=== PATIENT | female | born 1985 | race Caucasian/White ===

== ENCOUNTER 2018-11-21 08:03 | Day surgery (SDC) | payer MEDICAID ==
[2018-11-21] MEDS ORDERED: Dextrose 5%-Lactated Ringers 1,000 ML IV SCH (08:30)
[2018-11-21] MEDS ORDERED: Glycopyrrolate 0.2 MG/ML 2 ML SDV IVPUSH ONE (09:30)
[2018-11-21] MEDS ORDERED: Propofol 200 MG/20 ML SDV ONE ×2 (09:52→10:54)
[2018-11-21] MEDS ORDERED: Midazolam 1 MG/ML 2 ML SDV ONE ×2 (09:52→10:54)
[2018-11-21] MEDS ORDERED: fentaNYL 100 MCG/2 ML SDV ONE ×2 (09:52→10:54)
--- NOTE | 2018-11-27 10:40 | OR ---
DATE OF PROCEDURE: 11/21/2018 PREOPERATIVE DIAGNOSIS: Severe gastroesophageal reflux, status post laparoscopic adjustable gastric band. POSTOPERATIVE DIAGNOSES: 1. Marked esophageal dilation and esophagitis, status post laparoscopic adjustable gastric band. 2. Mild antral gastritis. PROCEDURE: Upper GI endoscopy with biopsies of antrum for CLOtest. ANESTHESIA: IV sedation. INDICATION FOR PROCEDURE: This is a 32-year-old female status post laparoscopic adjustable gastric band placement in [place], [place] in 2012. Over the past few months, she has had increasing problems with marked esophageal reflux symptoms with the patient experiencing some bilious-type material getting up into the throat particularly when sleeping and occasionally waking up coughing indicating some degree of aspiration of the esophageal contents. This has been continuing despite the band having been deflated. The plan is to proceed with upper GI endoscopy for diagnostic purposes. Potential risks of the procedure including bleeding and perforation were discussed, and the patient wishes to proceed. DETAILS OF PROCEDURE: The patient was taken to the operating room and placed in a left lateral decubitus position. IV sedation was administered, after which the upper GI endoscope was passed orally through the length of the esophagus into the stomach with retroflexion view of the fundus, and thereafter, through the pyloric channel and the proximal duodenum. Findings included some redness in the hypopharynx and larynx, consistent with some reflux. As one entered the esophagus, there was some pooled fluid within it. This had some mild bowel staining and it was associated with quite striking esophageal dilation and excoriation of the distal esophagus. The point where the band imprint had come across the gastric cardia was unremarkable in terms of there being no mechanical obstruction at this area, and retroflexion view to view the fundus from within the stomach revealed the band implant with signs of erosion. Within the antrum of the stomach, there was some mild redness, but without erosions or ulcers. The visualized portion of the pyloric channel and duodenum were unremarkable. At this point, biopsies were obtained from the antrum to establish the patient's H. pylori status by means of a CLOtest. The scope was then withdrawn. All the fluid was aspirated from the esophagus to minimize post operative pulmonary complications, and the procedure was then concluded. The patient would appear to be a candidate for conversion of the band to a Angelique-en-Y gastric bypass status and in fact as a fairly urgent medical indications for this given the clinical and the endoscopic findings and a prior authorization for that conversion will be sent to her insurance carrier. Brandon Zarate MD /[id number]
--- NOTE | 2018-11-27 17:13 | OR ---
DATE OF PROCEDURE: 11/21/2018 PREOPERATIVE DIAGNOSIS: Severe gastroesophageal reflux, status post laparoscopic adjustable gastric band. POSTOPERATIVE DIAGNOSES: 1. Marked esophageal dilation and esophagitis, status post laparoscopic adjustable gastric band placement. 2. Mild antral gastritis. OPERATIVE PROCEDURE: Esophagogastroduodenoscopy with biopsies of antrum for CLOtest. ANESTHESIA: IV sedation. INDICATION FOR PROCEDURE: This is a 32-year-old status post laparoscopic adjustable gastric band placement in [place] in 2012. Initially, she did reasonably well going from a constant weight of 274 pounds down to 230 pounds. Recently, she has had problems with severe reflux. This has persisted with the patient waking up at times with some bilious- type material in her throat and coughing. This has persisted despite band being deflated. Over the past period of months, she has increasingly needed to resort to more of a liquid diet as to minimize those symptoms, and with this, has had significant weight regain at presently of 286 pounds. The plan is to proceed with upper GI endoscopy for diagnostic purposes. Potential risks of the procedure including bleeding and perforation were discussed, and the patient wishes to proceed. DETAILS OF PROCEDURE: The patient was taken to the operating room and placed in a left lateral decubitus position. IV sedation was administered, after which the upper GI endoscope was passed orally through the length of the esophagus, into the stomach including through the imprint of the band, which was located at the gastric cardia, and from there, retroflexion within the stomach to review the fundus, beyond that and through the pyloric channel and into the proximal duodenum. Findings included a markedly-dilated esophagus. This contained some faint bilious fluid present. This was initially evacuated and measured around 25 mL in the canister. This was mixed with some scattered solid stool with food as well. There was marked redness diffusely of the distal third of the esophagus related to the pooling of the fluid and associated dilation. At the gastric cardia, the imprint of the band was present. This was wide open, i.e., there was no mechanical obstruction from the band itself indicating that we are dealing with more of functional esophageal dilation, which one often sees above the band. Within the stomach, retroflexion revealed no evidence of band erosion, and there was some patchy redness in the antrum consistent with some antral gastritis. Pyloric channel and proximal duodenum were unremarkable. At this point, biopsies were obtained from the antrum and sent for CLOtest for H. pylori. Minimal bleeding from the biopsy sites was seen and the procedure then concluded. The patient would appear to be in a relatively urgent need to have the band removed and it would be best treated by conversion to a Angelique-en-Y gastric bypass. We will contact her insurance carrier regarding that issue. Brandon Zarate MD /[id number]
== END 2018-11-21 12:20 | disposition home or self-care (01) ==
LOC: JP.SDS 08:03
PROVIDERS: ATTEND Surgery
DX: K21.9 Gastro-esophageal reflux disease without esophagitis (principal); K22.8 Other specified diseases of esophagus; K95.89 Other complications of other bariatric procedure; K29.70 Gastritis, unspecified, without bleeding; I10 Essential (primary) hypertension; E66.09 Other obesity due to excess calories; Z87.891 Personal history of nicotine dependence; Z98.84 Bariatric surgery status
CPT/HCPCS: 43239; 81025; 87081; J2250; J2704; J3010; J3490; J7042

== ENCOUNTER 2019-03-24 07:15 | Inpatient (IN) | payer MEDICAID ==
[~2019-03-24 07:15] MED LIST: Bupivacaine 0.5% 50 ML MDV ONE
[2019-03-24] MEDS ORDERED: cefOXitin 2 GM Vial ONE (07:17)
[2019-03-24] MEDS ORDERED: Scopolamine 1.5 MG Transdermal Patch TOP SCH (07:45)
[2019-03-24] MEDS ORDERED: Celecoxib 200 MG Cap PO ONE (07:45)
[2019-03-24] MEDS ORDERED: Acetaminophen 500 MG Tab PO ONE (07:45)
[2019-03-24] MEDS ORDERED: Gabapentin 300 MG Cap PO ONE (07:45)
[2019-03-24] MEDS ORDERED: fentaNYL 250 MCG/5 ML SDV ONE ×3 (08:16→11:42)
[2019-03-24] MEDS ORDERED: Neostigmine Methylsulfate 1 MG/ML 5 ML Syringe ONE (08:17)
[2019-03-24] MEDS ORDERED: Propofol 200 MG/20 ML SDV ONE (08:17)
[2019-03-24] MEDS ORDERED: Ondansetron 4 MG/2 ML SDV ONE (08:17)
[2019-03-24] MEDS ORDERED: Glycopyrrolate 0.2 MG/ML 5 ML MDV ONE (08:17)
[2019-03-24] MEDS ORDERED: Dexamethasone 4 MG/ML SDV ONE (08:17)
[2019-03-24] MEDS ORDERED: Succinylcholine 200 MG/10 ML MDV ONE (08:17)
[2019-03-24] MEDS ORDERED: Rocuronium 50 MG/5 ML Vial ONE (08:17)
[2019-03-24] MEDS ORDERED: Lactated Ringers 1,000 ML ONE (08:18)
[2019-03-24] MEDS ORDERED: Dextrose 5%-Lactated Ringers 1,000 ML IV SCH (08:30)
[2019-03-24] MEDS ORDERED: cefOXitin 2 GM in Sodium Chloride 0.9% 50 ML IV ONE (09:30)
[2019-03-24] MEDS ORDERED: Ketamine 500 MG/5 ML MDV IV SCH (09:45)
[2019-03-24] MEDS ORDERED: Lidocaine 2% 100 MG/5 ML Syringe IVPUSH SCH (09:45)
[2019-03-24] MEDS ORDERED: Ketamine 50 MG in Sodium Chloride 0.9% 49.5 ML IV SCH (09:45)
[2019-03-24] MEDS ORDERED: Labetalol 20 MG/4 ML Syringe ONE (11:28)
[2019-03-24] MEDS ORDERED: hydrOXYzine HCl 100 MG/2 ML SDV IM ONE (13:51)
[2019-03-24] MEDS ORDERED: Labetalol 20 MG/4 ML Syringe IVPUSH PRN (14:27)
[2019-03-24] MEDS ORDERED: HYDROmorphone 1 MG/ML Syringe IV PRN (14:27)
[2019-03-24] MEDS ORDERED: hydrOXYzine HCl 100 MG/2 ML SDV IM PRN (14:27)
[2019-03-24] MEDS ORDERED: Metoclopramide 10 MG/2 ML SDV IVPUSH PRN (14:27)
[2019-03-24] MEDS ORDERED: diphenhydrAMINE 50 MG/ML SDV IVPUSH PRN (14:27)
[2019-03-24] MEDS: Lidocaine 0.4%/D5W 2 GM/500 ML BAG IV SCH (14:35)
[2019-03-24] MEDS: Gabapentin 250 MG/5 ML Solution ML 470 ML Bottle PO SCH ×2 (15:00→21:12)
[2019-03-24] MEDS: HYDROmorphone 0.5 MG/0.5 ML Syringe IVPUSH PRN (15:00)
[2019-03-24] MEDS: Acetaminophen Soln 650 MG/20.3 ML UD Cup PO SCH ×2 (15:03→21:12)
[2019-03-24] MEDS ORDERED: MVI, Adult with Vitamin K 10 ML, Thiamine 200 MG, Chromium/Copper/Mang/Selen/Zn 1 ML in... IV SCH ×4 (16:00)
[2019-03-24] MEDS ORDERED: Pantoprazole 40 MG Vial IVPUSH SCH (16:00)
[2019-03-24] MEDS: cefOXitin 2 GM in Sodium Chloride 0.9% 50 ML IV SCH ×2 (16:33→21:12)
[2019-03-24] MEDS: Ondansetron 4 MG/2 ML SDV IVPUSH PRN (17:32)
[2019-03-24] MEDS: Heparin Sodium 5,000 Units/ML Vial SUBCUT SCH (18:11)
[2019-03-24] MEDS: Dextrose 5%-Lactated Ringers 1,000 ML IV SCH (22:30)
[2019-03-25] MEDS: cefOXitin 2 GM in Sodium Chloride 0.9% 50 ML IV SCH ×4 (03:29→21:09)
[2019-03-25] MEDS: Acetaminophen Soln 650 MG/20.3 ML UD Cup PO SCH ×4 (03:30→21:09)
[2019-03-25] MEDS: Dextrose 5%-Lactated Ringers 1,000 ML IV SCH ×2 (03:30→09:14)
[2019-03-25] MEDS ORDERED: Iohexol 647 MG/ML 50 ML SDV PO STA (03:30)
[2019-03-25] MEDS: Ondansetron 4 MG/2 ML SDV IVPUSH PRN (04:05)
[2019-03-25] MEDS: HYDROmorphone 0.5 MG/0.5 ML Syringe IVPUSH PRN (04:05)
--- NOTE | 2019-03-25 04:07 | CRLCR ---
INDICATION: History gastric bypass. TECHNIQUE: Two-view. FINDINGS: Two images demonstrate postsurgical changes of gastric bypass. There is contrast in the lower esophagus, gastric pouch and jejunum. No extravasation is seen. Surgical drain in the left upper quadrant is noted. Postsurgical changes from cholecystectomy are noted. IMPRESSION: Postsurgical changes of gastric bypass. No extravasation is seen based on 2 views. Dictated by Tim Irene MD @ Mar 26 2019 8:56AM Signed by Dr. Tim Irene @ Mar 26 2019 9:04AM
[2019-03-25] MEDS: Heparin Sodium 5,000 Units/ML Vial SUBCUT SCH ×2 (05:44→18:59)
[2019-03-25] MEDS ORDERED: Ondansetron 4 MG Tab.DIS PO PRN (07:29)
[2019-03-25] MEDS: Celecoxib 200 MG Cap PO SCH (08:31)
[2019-03-25] MEDS: Gabapentin 250 MG/5 ML Solution ML 470 ML Bottle PO SCH ×3 (08:31→21:09)
[2019-03-25] MEDS ORDERED: LEVONORGESTREL IY SCH (09:00)
[2019-03-25] MEDS ORDERED: Tamsulosin 0.4 MG Cap.ER PO ONE (09:00)
[2019-03-25] MEDS: SCOPOLAMINE PATCH CHECK TOP SCH (09:14)
--- NOTE | 2019-03-25 12:47 | PN ---
DATE OF SERVICE: 03/25/2019 SUBJECTIVE: Heather is postoperative day #1, her upper GI was normal this morning. She has received 2 doses. Her pain has been controlled. She has been up ambulating. REVIEW OF SYSTEMS: Remainder of review of systems negative for any pertinent positives and negatives. OBJECTIVE: GENERAL: Heather Swanson is a 33-year-old female. She is alert and orientated, sitting up in the chair. VITAL SIGNS: TPR 99, 90, 18, blood pressure 131/70. HEENT: Negative. NECK: Supple. HEART: Regular rate and rhythm. LUNGS: Clear. ABDOMEN: Dressings dry and intact. Abdominal binder is on. JOSE ALEJANDRO drain put out 135 mL of a light pink serosanguineous drainage. EXTREMITIES: Without peripheral edema. ASSESSMENT: Removal of laparoscopic gastric band system and conversion to Angelique-en-Y gastric bypass surgery; date of surgery is 03/24/2019; surgeon, Brandon Zarate MD. PLAN: 1. Decrease IV to 100 mL per hour. 2. Step-2 gastric bypass diet with no cereal. 3. Communication order, 3 med cups per hour, record at bedside. 4. Dressing off, may shower. 5. Ambulate 6 times. 6. Zofran 4 mg ODT one q.4 hours p.r.n. nausea. Home medication restarted that is daily. 7. Good pulmonary toilet. 8. We will evaluate p.r.n. or in a.m. Robina Lee PA-C /[id number]
[2019-03-25] MEDS ORDERED: Pantoprazole 40 MG Delayed-Release Granules 1 Packet PO SCH (16:00)
[2019-03-25] MEDS ORDERED: MVI, Adult with Vitamin K 10 ML, Thiamine 200 MG, Chromium/Copper/Mang/Selen/Zn 1 ML in... IV SCH ×4 (16:00)
[2019-03-25] MEDS: Lidocaine 0.4%/D5W 2 GM/500 ML BAG IV SCH (16:05)
[2019-03-26] MEDS: Dextrose 5%-Lactated Ringers 1,000 ML IV SCH (03:21)
[2019-03-26] MEDS: Acetaminophen Soln 650 MG/20.3 ML UD Cup PO SCH ×2 (03:22→09:41)
[2019-03-26] MEDS: Heparin Sodium 5,000 Units/ML Vial SUBCUT SCH (06:07)
[2019-03-26] MEDS ORDERED: Cyanocobalamin (Vitamin B12) 1,000 MCG/ML SDV IM ONE (09:00)
[2019-03-26] MEDS: Celecoxib 200 MG Cap PO SCH (09:41)
[2019-03-26] MEDS: Gabapentin 250 MG/5 ML Solution ML 470 ML Bottle PO SCH (09:42)
[2019-03-26] MEDS: SCOPOLAMINE PATCH CHECK TOP SCH (09:42)
--- NOTE | 2019-03-26 15:26 | OR ---
DATE OF PROCEDURE: 03/24/2019 PREOPERATIVE DIAGNOSES: Intolerance to and recurrent morbid obesity associated with laparoscopic adjustable gastric band. POSTOPERATIVE DIAGNOSES: 1. Intolerance to and recurrent morbid obesity associated with laparoscopic adjustable gastric band. 2. Area of deserosalization of stomach secondary to takedown of gastric band. 3. Paraesophageal diaphragmatic hernia. 4. Marked hepatomegaly. OPERATIVE PROCEDURES: Diagnostic laparoscopy with: 1. Removal of laparoscopic adjustable gastric band system (35517). 2. Formation of Angelique-en-Y gastric bypass (35956). 3. Partial gastrectomy (01873). 4. Kenroy-Cut needle liver biopsy (99171). ANESTHESIA: General. OB SCRUB TECH: Robina Lee PA-C. INDICATIONS FOR PROCEDURE: This is a 33-year-old female presenting with history of laparoscopic adjustable gastric band placement. Over the past several months to a year or so, she has had increasing problems with marked heartburn and upper endoscopy revealed significant esophageal dilation and marked esophagitis. With this, she has also had a significant weight regain and is clinically well into the range of morbid obesity with a current BMI of 45. After preoperative evaluation and discussion, the plan is to proceed with removal of gastric band system, along with conversion to Angelique-en-Y gastric bypass. Potential risks of the procedure including bleeding, infection, leaks from various GI tract closures, problems with bowel obstruction over time, as well as the possibility of cardiopulmonary, septic, or hemorrhagic complications leading to were discussed, and the patient wishes to proceed. DETAILS OF PROCEDURE: The patient was taken to the operating room and after general endotracheal anesthesia was induced, she was converted to a lithotomy position. The abdomen was prepped and draped. At 15 cm inferior and 5 cm left of the xiphoid process, a transverse incision was made, and the peritoneal cavity was entered under direct vision with an Optiview trocar, inflated to 15 mmHg pressure with CO2. Laparoscope was then reinserted, and no underlying trocar insertion site injuries were seen. Following this, bilateral subcostal transversus abdominis plane blocks were placed, and 5 additional trocars were placed across the upper and mid-abdomen. Initial examination of the liver showed marked hepatomegaly with liver volume being roughly 2 to 3 times normal and grossly fatty infiltrated. Kenroy-Cut needle biopsies were obtained from left lobe of liver. Minimal bleeding from the biopsy site was controlled with electrocautery. Attention was taken to removal of the band. The liver was retracted anteriorly. Some adhesions between the band area and the liver were divided with Harmonic scalpel, allowing anterior retraction of the liver. The gastric wrap over the band was then taken down with electrocautery. Once the attachments of fibrous tissue to the band were freed up, the band was divided and pulled from the band track. The port tubing was then cut at 2 levels and a segment of port tubing alone was removed along with the port tubing and the attached band. During the course of the dissection, there was a rim of gastric wall, which was devascularized and deserosalized. This was resected with a CASSANDRA black load. The patient was noted, upon removal of the band, to have a paraesophageal diaphragmatic hernia with prolapse of some omentum and perigastric fat in a plane posterior to the course of the stomach above where the band imprint had been. This was dissected free and then freed up enough that a posterior repair was accomplished with 0 Ethibond sutures reinforced with PTFE pledgets. The gastric pouch was then constructed with division of the stomach at the level of the band imprint with 3 firings of the CASSANDRA black loads. Upon completion of the staple lines, both sites of the elayne appeared to be intact. At this point, attention was taken to the small bowel. The small bowel was identified at the ligament of Treitz and dissected down 200 cm distal to that point, where it was divided with the CASSANDRA stapler. Small bowel was then traced out additional 200 cm, where the side-to- side enteroenterostomy was accomplished with internal firing of the Endo-CASSANDRA 60-mm stapler. Common opening was then closed transversely with the same stapler, and the angles anastomosed and mesenteric defect approximated with some 0 Ethibond stitch, along with 4 mL of fibrin sealant. The divided end of the Angelique limb was then from the mesentery for a few centimeters, which allowed an antecolic position of the Angelique limb up to the level of the gastroesophageal junction without tension. The anvil of a 25-mm EEA stapler was attached to Clare sump tube. The latter was brought down through the mouth and taken out a small opening in the gastric pouch, and the anvil likewise to be pulled down within the gastric pouch. The divided end of the Angelique limb was then opened and main body of the EEA stapler was passed several centimeters into the Angelique limb, brought up to the anvil and united with it, thus creating the gastrojejunostomy. Upon removal of the stapler, double donuts of mucosa were noted within it. Then, the small bowel was closed off with vascular staple line. The gastrojejunostomy was then reinforced with some fibrin sealant and 3-0 Vicryl stitch placed on the left anterior and right aspects of the gastrojejunostomy in the seromuscular plane. Additionally, a tongue of omentum was then brought in behind the gastrojejunostomy and this being pulled from the left to the right side and sutured to the fatty soft tissues to the right of the gastrojejunostomy to hold it in place with 3-0 Vicryl stitch as well. At that point, a leak test was accomplished with injection of 120 mL of air in the gastric pouch while it was submerged within cefoxitin- containing saline solution. A single Werner-Brandt drain was then taken out through the left lateral trocar site, placed very adjacent to gastrojejunostomy and from there up into the splenic fossa. At that point, no further problems were noted. Trocars were removed, and the peritoneal cavity deflated. Incisions were closed with 4-0 Vicryl skin stitch, which was also used to affix the drain. The patient was taken to the recovery room in a satisfactory condition. Physician assistant professor of history, Robina Lee, played an essential role in assisting in this case, helping to position the patient, retract structures as needed, as well as suturing and cutting sutures when indicated. Her presence improved patient safety and decreased the operative time. Brandon Zarate MD /[id number]
--- NOTE | 2019-03-28 07:56 | DISCH ---
ADMISSION DIAGNOSES: 1. Morbid obesity. 2. BMI of 45.5. 3. History of laparoscopic gastric band. DISCHARGE DIAGNOSES: 1. Diagnostic laparoscopy with: a. Removal of laparoscopic adjustable gastric band system. b. Formation of Angelique-en-Y gastric bypass. c. Partial gastrectomy. d. Kenroy-Cut needle liver biopsy for intolerance and recurrent morbid obesity associated with laparoscopic adjustable gastric band. 2. Area of deserosalization of the stomach secondary to takedown the gastric band. 3. Paraesophageal diaphragmatic hernia. 4. Marked hepatomegaly. HISTORY: Heather is a 33-year-old female presenting with history of laparoscopic adjustable gastric band placement. Over the past several months to a year, she has had increasing problems with her lap band, including heartburn. An upper endoscopy revealed significant esophageal dilatation and marked esophagitis. She had significant weight gain and increasing comorbidities. After preoperative evaluation and discussion of possible risks and possible complications, she wished to proceed with surgical procedure. HOSPITAL COURSE: Heather had her surgery on 03/24/2019. She had no operative complications. On postoperative day #1, she was started on a step-2 with no cereal gastric bypass diet. Her activity was good. Her pain was well managed. Vital signs remained stable. On postoperative day 2, she received dietary instruction and postop instruction reviewed, and she was able to be discharged to home. PHYSICAL EXAMINATION: GENERAL: Heather Swanson is a 33-year-old female. VITAL SIGNS: TPR is 98.5, 81, 16, blood pressure 128/67. HEENT: Negative. NECK: Supple. HEART: Regular rate and rhythm. LUNGS: Clear. ABDOMEN: Soft. Sutures intact. Incision is healing well, 4x4 over JOSE ALEJANDRO drain site. EXTREMITIES: Without peripheral edema. DISPOSITION: Discharged to home. CONDITION: Stable and improving. FOLLOWUP: Followup appointment with Robina Lee PA-C, on 04/02/2019 at 10 a.m. HOME MEDICATIONS: 1. Tylenol 650 mg oral q.6 hours. 2. Zofran ODT 4 mg every 4 hours p.r.n. nausea, #30. 3. Celebrex 200 mg oral daily, #14. 4. Kyleena (levonorgestrel) IUD. 5. Discontinue all vitamins and supplements until first postoperative appointment. DIET: Step-2 gastric bypass diet with no cereal until 04/08/2019. ACTIVITY: No lifting greater than 10 pounds for 2 weeks. Other activity, walk 6 times daily, distance and time as tolerated. Driving, do not drive for 1 week. Shower/ bathing, may shower. DISCHARGE INSTRUCTIONS: Notify provider if any fever, increased pain, nausea, or vomiting. Keep site clean and dry. Wear abdominal binder for 2 weeks and as tolerated. Special instruction, use incentive spirometer 10 times every hour while awake.
== END 2019-03-26 15:19 | disposition home or self-care (01) | DRG 327 ==
LOC: JP.SDSSCHI 07:15 → JP.MS 07:15 → UNDOADMIN 07:15 → JP.SDS 07:15 → EDSTATUS 08:30 → JP.MS 13:05
PROVIDERS: ADMIT Surgery; ATTEND Surgery
PROC: 0DP64CZ Removal of Extraluminal Device from Stomach, Percutaneous Endoscopic Approach (ICD-10-PCS; principal; 2019-03-24)
PROC: 0D164ZA Bypass Stomach to Jejunum, Percutaneous Endoscopic Approach (ICD-10-PCS; 2019-03-24)
PROC: 0BQT4ZZ Repair Diaphragm, Percutaneous Endoscopic Approach (ICD-10-PCS; 2019-03-24)
PROC: 0FB24ZX Excision of Left Lobe Liver, Percutaneous Endoscopic Approach, Diagnostic (ICD-10-PCS; 2019-03-24)
PROC: 0DB64ZZ Excision of Stomach, Percutaneous Endoscopic Approach (ICD-10-PCS; 2019-03-24)
DX: K95.09 Other complications of gastric band procedure (principal); Z68.42 Body mass index [BMI] 45.0-49.9, adult; E66.01 Morbid (severe) obesity due to excess calories; R16.0 Hepatomegaly, not elsewhere classified; K44.9 Diaphragmatic hernia without obstruction or gangrene; K76.0 Fatty (change of) liver, not elsewhere classified; Z98.84 Bariatric surgery status; Z87.898 Personal history of other specified conditions; Z88.5 Allergy status to narcotic agent; Z91.048 Other nonmedicinal substance allergy status; K31.89 Other diseases of stomach and duodenum; R12 Heartburn; K20.9 Esophagitis, unspecified; K22.8 Other specified diseases of esophagus
CPT/HCPCS: 36415; 74240; 81025; 82728; 82962; 86850; 86900; 86901; 88300; 88307; 88313; A9270-GY; C9113; J0171; J0330; J0694; J1100; J1170; J1644; J2001; J2405; J2704; J2710; J2795; J3010; J3410; J3411; J3420; J3490; J7042; J7050; J7120; Q9967

== ENCOUNTER 2020-02-24 05:33 | Day surgery (SDC) | payer MEDICAID ==
[2020-02-24] MEDS ORDERED: Cyanocobalamin (Vitamin B12) 1,000 MCG/ML SDV IM ONE (06:15)
[2020-02-24] MEDS ORDERED: Lactated Ringers 1,000 ML IV ONE (06:15)
[2020-02-24] MEDS ORDERED: Glycopyrrolate 0.2 MG/ML 2 ML SDV IVPUSH ONE (06:15)
[2020-02-24] MEDS ORDERED: MVI, Adult with Vitamin K 10 ML, Thiamine 200 MG, Chromium/Copper/Mang/Selen/Zn 1 ML in... IV ONE ×4 (07:00)
[2020-02-24] MEDS ORDERED: fentaNYL 100 MCG/2 ML SDV ONE (07:05)
[2020-02-24] MEDS ORDERED: Propofol 200 MG/20 ML SDV ONE (07:05)
[2020-02-24] MEDS ORDERED: Midazolam 1 MG/ML 2 ML SDV ONE (07:05)
[2020-02-24] MEDS ORDERED: Pantoprazole 40 MG Vial IVPUSH ONE (07:18)
--- NOTE | 2020-02-25 13:55 | OR ---
DATE OF PROCEDURE: 02/24/2020 SURGEON: Brandon Zarate MD PREOPERATIVE DIAGNOSIS: Dysphagia and painful swallowing, status post previous Angelique-en-Y gastric bypass. POSTOPERATIVE DIAGNOSIS: Moderate stricture at gastrojejunostomy. OPERATIVE PROCEDURE: Upper GI endoscopy with dilation of gastrojejunostomy (21054). ANESTHESIA: IV sedation. INDICATION FOR PROCEDURE: This is a 34-year-old female who is status post conversion of band to Angelique-en-Y gastric bypass status in March 2019. She presents now with some dysphagia and pain on swallowing gastrojejunostomy. She had been started on omeprazole a few days ago, but it was not tolerated due to nausea. Plan is to proceed with an upper GI endoscopy with biopsies and then dilation as indicated. Potential risks including bleeding and perforation were discussed, and the patient wishes to proceed. DESCRIPTION OF PROCEDURE: The patient was taken to the operating room and placed in the left lateral decubitus position. IV sedation was administered, after which the upper GI endoscope was passed orally through the length of the esophagus and into the gastrojejunostomy. The patient was noted to have mild stricture of that area. The scope was able to be passed through this, but fairly snugly. There was minimal inflammation present with a little bit of blood noted on the gastrojejunostomy after passage of the scope. Bard gastrointestinal catheter was centered across the anastomosis and inflated to 45-Greek size. This was held in position for 1 minute. After balloon catheter deflated and withdrawn, the patient was noted to have somewhat increased diameter of the gastrojejunostomy, but there were no complications. Procedure was then concluded. The plan will be to have the patient do the usual postop 2 diet for the next 5 days. We will advance as tolerated. We will give her Protonix 40 mg IV in the recovery room and then Protonix for 1 month of orally and should be following up with Robina Lee in April. Brandon Zarate MD /[id number]
== END 2020-02-24 10:04 | disposition home or self-care (01) ==
LOC: JP.SDS 05:33
PROVIDERS: ATTEND Surgery
DX: K91.89 Other postprocedural complications and disorders of digestive system (principal); K22.2 Esophageal obstruction; F17.200 Nicotine dependence, unspecified, uncomplicated; Z88.5 Allergy status to narcotic agent
CPT/HCPCS: 81025; C9113; J2250; J2704; J3010; J3411; J3420; J3490; J7120

== ENCOUNTER 2023-06-29 06:37 | Day surgery (SDC) | payer MEDICAID ==
[2023-06-29] MEDS: Cyanocobalamin (Vitamin B12) 1,000 MCG/ML SDV IM ONE ×2 (07:14→10:25)
[2023-06-29] MEDS ORDERED: Lactated Ringers 1,000 ML IV SCH (07:15)
[2023-06-29] MEDS ORDERED: fentaNYL 100 MCG/2 ML SDV ONE (07:18)
[2023-06-29] MEDS ORDERED: Midazolam 1 MG/ML 2 ML SDV ONE (07:18)
[2023-06-29] MEDS ORDERED: Propofol 200 MG/20 ML SDV ONE (07:18)
[2023-06-29] MEDS: MVI, Adult with Vitamin K 10 ML, Thiamine 200 MG, Zinc/Copper/Manganese/Selenium 1 ML i... IV ONE ×8 (07:27→10:24)
[2023-06-29] MEDS ORDERED: Glycopyrrolate 0.2 MG/ML 2 ML SDV IVPUSH ONE (07:45)
[2023-06-29] MEDS ORDERED: Dexamethasone 4 MG/ML SDV ONE (09:38)
== END 2023-06-29 10:46 | disposition home or self-care (01) ==
LOC: JP.SDS 06:37
PROVIDERS: ATTEND Surgery
DX: R12 Heartburn (principal); K21.9 Gastro-esophageal reflux disease without esophagitis; Z98.84 Bariatric surgery status; Z88.5 Allergy status to narcotic agent
CPT/HCPCS: 43235; C1726; J1100; J2250; J2704; J3010; J3411; J3420; J3490; J7120